=== PATIENT | female | born 1955 | race Caucasian/White ===

== ENCOUNTER → 2017-10-02 | Outpatient (CLI) | payer OTHER ==
[~2017-10-02] MED LIST: ANTIVERT25 MG PO; BRINTELLIX10 MG PO; DEXACIDIN EYE DR5 ML OP; HYDROCODON-ACE1 EAC7 PO; MULTI VITAMIN1 EACH PO; TRANSDERM-SCO1 PATC1 TD; WELLBUTRIN SR100 MG PO
--- NOTE | 2017-10-04 10:53 | TST ---
[place] [address] TREADMILL STRESS TEST Name: PATTY BENITEZ Room: [facility]#: [id number] Admission: 10/02/17 Attend Phys: Migue Carter, Discharge: Date of : 53 Date of Service: 10/02/17 1608 Report #: [id number] THIS REPORT FOR: //name// CC: Migue Carter [facility] DATE OF SERVICE: 10/02/2017 ORDERING PHYSICIAN: Migue Carter MD. INDICATION: Shortness of breath, vertigo. CHRONIC ISSUES: Negative. RISK FACTORS: Include age. No medications. The patient exercised for 8 minutes on a standard Cedric protocol, achieving 91% age predicted maximum heart rate, 10.13 mets. Resting blood pressure 108/71, heart rate 65, peak blood pressure 135/67, heart rate 143. Recovery blood pressure 118/78 with a heart rate of 81. The test was terminated due to fatigue. There were no complaints of chest discomfort. Exercise capacity overall is normal. Resting ECG demonstrates a sinus rhythm. During exercise, there were mild nonspecific ST-segment changes, not meeting criteria for ischemia. Recovery was normal. IMPRESSION: 1. Clinical portion was negative. 2. Electrocardiographic portion was negative. 3. Exercise capacity is normal. CONCLUSION: This exercise ECG only stress test was negative for ischemia at the level of exercise achieved. <ELECTRONICALLY SIGNED> By: Ariel Vazquez MD, FACC 10/04/17 1053 1608 1756 Ariel Vazquez MD, [facility] /nt
== END ==
LOC: M.CRD 09-17 14:01 → M.ULTRA 08:00 → M.NUC 08:00 → M.CRD 13:00 → M.ULTRA 14:00
DX: E04.2 Nontoxic multinodular goiter (principal); R53.83 Other fatigue; R06.09 Other forms of dyspnea; R55 Syncope and collapse; R42 Dizziness and giddiness

== ENCOUNTER 2018-09-26 13:20 | Inpatient (IN) | payer OTHER ==
[2018-09-26] VITALS (8 sets, daily range): BP systolic 72–237; BP diastolic 42–161
[~2018-09-26] VITALS: Ht 157.5 cm; Wt 59.0 kg
[2018-09-26 14:15] LABS: ABSOLUTE BASOPHILS 0.1 thou/uL (0.0-0.2); ABSOLUTE EOSINOPHILS 0.1 thou/uL (0.0-0.7); ABSOLUTE LYMPHOCYTES 5.9 thou/uL (0.8-5.3); ABSOLUTE MONOCYTES 0.7 thou/uL (0.0-1.2); BASOPHILS 0.6 %; EOSINOPHILS 1.4 %; HEMATOCRIT 46.8 % (37.0-47.0); HEMOGLOBIN 13.9 gm/dL (12.0-15.0); LYMPHOCYTES 59.8 %; MCH 28.9 pg (26.0-34.0); MCHC 29.7 g/dL (28.0-37.0); MCV 97.6 fL (80.0-100.0); MONOCYTES 7.6 %; MPV 8.4 fl. (7.2-11.1); NUCLEATED RBCS 0 /100WBC; PLATELET COUNT* 171 thou/uL (150-400); POLYS 30.6 %; RBC 4.79 mil/uL (4.20-5.00); RDW-CV 14.9 % (10.5-14.5); WBC 9.8 thou/uL (4.0-11.0)
[2018-09-26 14:22] LABS: APTT 41.9 Seconds (25.0-31.3); INR 1.2; PROTIME 12.4 Seconds (9.20-11.50)
[2018-09-26 14:31] LABS: CALCIUM 7.7 mg/dL (8.5-10.1); CREATININE 1.5 mg/dL (0.6-1.3); POTASSIUM 4.1 mmol/L (3.5-5.1)
[2018-09-26 14:35] LABS: ALBUMIN 2.5 g/dL (3.4-5.0); CK-MB MASS 2.9 ng/mL (<0.5-3.6); MAGNESIUM 2.7 mg/dL (1.8-2.4); TOTAL BILIRUBIN 0.4 mg/dL (<0.1-1.0); TOTAL PROTEIN 5.4 g/dL (6.4-8.2)
[2018-09-26 14:38] LABS: TROPONIN-I LEVEL 0.76 ng/mL (<0.06)
--- NOTE | 2018-09-26 15:20 | EKG ---
[place] [address] ELECTROCARDIOGRAM REPORT Name: PATTY BENITEZ Room: [address] ADM IN M.R.#: [id number] Admission: 09/26/18 Attend Phys: Gennaro Dooley MD Discharge: Date of : 53 Report #: [id number] THIS REPORT FOR: //name// [facility] ED Test Date: 2018-09-26 Test Time: 13:28:30 Pat Name: PATTY BENITEZ Department: Room: [facility] Gender: F Health Advocate: Lizzy MAYO : 1955 Requested By: Phil Daly Order Number: [id number] MD: Lex Francis Measurements Intervals [place] Rate: 106 P: 14 FL: 119 QRS: 38 QRSD: 135 T: -19 QT: 345 QTc: 459 Interpretive Statements Sinus tachycardia Right bundle branch block Inferior infarct, age indeterminate Lateral leads are also involved No previous ECG available for comparison Electronically Signed On 09-26-2018 15:20:43 CDT by Lex Francis [email or web address] <ELECTRONICALLY SIGNED> By: Lex Francis MD, [facility] 09/26/18 1520 1328 1328 Lex Francis MD, FAC /EPI
--- NOTE | 2018-09-26 17:00 | 2DMMODE ---
[place] [address] 2 D/M-MODE ECHOCARDIOGRAM Name: PATTY BENITEZ Room: [address] ADM IN R#: [id number] Admission: 09/26/18 Attend Phys: Gennaro Dooley, Discharge: Date of : 53 Date of Service: 09/26/18 1700 Report #: [id number] THIS REPORT FOR: //name// APPROVED REPORT Study performed: 09/26/2018 16:24:28 EXAM: Comprehensive 2D, Doppler, and color-flow Echocardiogram Patient Location: In-Patient Room #: [facility] Status: routine BSA: 1.54 HR: 108 bpm BP: 145/67 mmHg Rhythm: NSR Other Information Study Quality: Good Indications Pulmonary Embolism 2D Dimensions IVSd: 14.36 (7-11mm) LVOT Diam: 18.41 (18-24mm) LVDd: 19.00 mm PWd: 10.76 (7-11mm) Ascending Ao: 27.84 (22-36mm) LVDs: 12.54 (25-40mm) Aortic Root: 26.73 mm Aortic Valve AoV Peak Derrek.: 0.97 m/s AO Peak Gr.: 3.78 mmHg LVOT Max P.40 mmHg AO Mean Gr.: 2.00 mmHg LVOT Mean P.70 mmHg LVOT Max V: 0.92 m/s AO V2 VTI: 11.64 cm LVOT Mean V: 0.61 m/s SY (VTI): 2.67 cm2 LVOT V1 VTI: 11.69 cm Mitral Valve E/A Ratio: 0.76 MV Decel. Time: 281.78 ms MV E Max Derrek.: 0.56 m/s MV PHT: 81.72 ms MVA (PHT): 2.69 [place] [address] 2 D/M-MODE ECHOCARDIOGRAM Name: PATTY BENITEZ Room: [address] IN .R.#: [id number] Admission: 09/26/18 Attend Phys: Gennaro Dooley, Discharge: Date of : 53 Date of Service: 09/26/18 1700 Report #: [id number] E/Lateral E': 8.00 E/Medial E': 8.00 Medial E' Derrek.: 0.07 m/s Lateral E' Derrek.: 0.07 m/s Tricuspid Valve RAP Estimate: 5.00 mmHg TR Peak Gr.: 28.05 mmHg RVSP: 33.00 mmHg PA Pressure: 33.00 mmHg Left Ventricle The left ventricle is normal size. There is normal LV segmental wall motion. Mild concentric left ventricular hypertrophy. Left ventricular systolic function is normal. LVEF is >70%. Transmitral Doppler flow pattern suggests impaired LV relaxation. Right Ventricle Right ventricle is moderately dilated. The right ventricular systolic function is normal. Atria The left atrium size is normal. Right atrium is moderately dilated. Aortic Valve The aortic valve is normal in structure. Trace aortic regurgitation. There is no aortic valvular stenosis. Mitral Valve The mitral valve is normal in structure. There is no mitral valve regurgitation noted. No evidence of mitral valve stenosis. Tricuspid Valve The tricuspid valve is normal in structure. Moderate tricuspid regurgitation. Mild pulmonary hypertension. Pulmonic Valve The pulmonary valve is normal in structure. Trace pulmonic regurgitation. Great Vessels The aortic root is normal in size. IVC is normal in size and collapses >50% with inspiration. Pericardium There [place] [address] 2 D/M-MODE ECHOCARDIOGRAM Name: PATTY BENITEZ Room: [address] IN [facility]#: [id number] Admission: 09/26/18 Attend Phys: Gennaro Dooley, Discharge: Date of : 53 Date of Service: 09/26/18 1700 Report #: [id number] <Conclusion> The left ventricle is normal size. Mild concentric left ventricular hypertrophy. Left ventricular systolic function is normal. LVEF is >70%. Transmitral Doppler flow pattern suggests impaired LV relaxation. Right atrium is moderately dilated. Right ventricle is moderately dilated. Moderate tricuspid regurgitation. Mild pulmonary hypertension. <ELECTRONICALLY SIGNED> By: Lex Francis MD, FACC 09/26/181699 99 99 Lex Francis MD, FACC /INF
[2018-09-26 17:01] LABS: INFLUENZA A ANTIGEN None Detected (None Detect); INFLUENZA B ANTIGEN None Detected (None Detect)
[2018-09-26 19:25] LABS: BE -14.1 mmol/L (-2 to +3); PO2 80.1 mmHg (75.0-100.0)
[2018-09-26 19:31] LABS: pH 7.038 (7.340-7.450)
[2018-09-26 19:32] LABS: PCO2 62.5 mmHg (35.0-45.0)
--- NOTE | 2018-09-27 17:07 | CON ---
[address] [address] CONSULTATION Name: PATTY BENITEZ Room: [address] IN M.R.#: [id number] Admission: 09/26/18 Attend Phys: Gennaro Dooley MD Discharge: 09/26/18 Date of : 53 Report #: [id number] THIS REPORT FOR: //name// CC: Gennaro Carter INDICATION: Out of hospital arrest. HISTORY OF PRESENT ILLNESS: The patient is a 63-year-old white female admitted to the hospital with complaints initially to her family of shortness of breath. EMS was summoned. Somewhere along the line, the patient collapsed. En route, she lost her pulse and had apparent seizure-like activity. The patient was given CPR and epinephrine and resuscitated at the Emergency Room. EKG shows right bundle-branch block with some ST segment depression. She has elevation isolated to lead 3, but not in contiguous leads. Troponin is 0.7. CTA of the chest shows large bilateral pulmonary emboli, which is likely the cause of her out of hospital arrest. Presently, she is intubated and unresponsive. PAST MEDICAL HISTORY: Anxiety, depression, and vertigo. ALLERGIES: None documented. HOME MEDICATIONS: Wellbutrin 100 mg b.i.d., Trintellix 10 mg daily, Transderm scopolamine patch q. 3 days, meclizine p.r.n. REVIEW OF SYSTEMS: Not obtainable. FAMILY HISTORY: Noncontributory. PHYSICAL EXAMINATION: VITAL SIGNS: Pulse is 102. Telemetry shows sinus tachycardia. Blood pressure 90/57. HEENT: Head is normocephalic, atraumatic. Pupils equally round and reactive to light. NECK: Shows a central line placement in the right neck, left neck without obvious jugular venous distention. CHEST: Reveals clear lung cruz anteriorly. CARDIAC: Reveals a tachycardic rhythm with grade 2/6 holosystolic murmur heard at the right upper sternal border. ABDOMEN: Reveals the abdomen is covered by cooling blanket. EXTREMITIES: Shows extremities cool to touch. Peripheral pulses not easily palpable. SKIN: Cool to the touch. The patient is somewhat pale. RADIOLOGICAL DATA: CT of the chest shows bilateral pulmonary emboli, [place] [address] CONSULTATION Name: PATTY BENITEZ Room: [address] IN [facility].#: [id number] Admission: 09/26/18 Attend Phys: Gennaro Dooley MD Discharge: 09/26/18 Date of : 53 Report #: [id number] LABORATORY DATA: Reviewed. Sodium 141, potassium 4.1, chloride 106, bicarbonate 18, BUN 25, creatinine 1.5, serum glucose 192, AST 655, lipase 256, total bilirubin 0.4, calcium 7.7, magnesium 2.7, alkaline phosphatase 107, ALT 618, total protein 5.4, albumin 2.5. Lactic acid 12.0. Troponin 0.76. NT-proBNP 21. White blood cell count 9.8; hemoglobin 13.9; platelet count 171,000. IMPRESSION AND RECOMMENDATIONS: 1. Out of hospital arrest secondary to bilateral pulmonary emboli. The patient is being transitioned to heparin drip. Blood pressure support with significant volume resuscitation as well as pressor agents currently. Hesitant to thrombolysis as the patient has a hematoma forming over central line placement in the right neck. Continue cooling protocol. 2. Elevated troponins secondary to type 2 myocardial infarction due to strain. Obtaining echocardiogram at this time. 3. Hypotension due to diminished cardiac output from obstruction on the right side. Recommend significant volume resuscitation at this time in an effort to improve blood pressure. Agree with pressor agents. <ELECTRONICALLY SIGNED> By: Lex Francis MD, FACC 09/27/18 1707 1631 [id number] Centeranam Francis MD, FACC /nt
== END 2018-09-26 23:00 | DRG 673 ==
LOC: M.ERS 13:20 → M.TBA-ER 14:23 → M.ICU 14:56
PROVIDERS: Emergency Medicine Emergency Medical Services; ADMIT Internal Medicine
PROC: 5A1935Z Respiratory Ventilation, Less than 24 Consecutive Hours (ICD-10-PCS; principal; 2018-09-26)
PROC: 02HV33Z Insertion of Infusion Device into Superior Vena Cava, Percutaneous Approach (ICD-10-PCS; principal; 2018-09-26)
PROC: 0BH17EZ Insertion of Endotracheal Airway into Trachea, Via Natural or Artificial Opening (ICD-10-PCS; principal; 2018-09-26)
PROC: 06H03DZ Insertion of Intraluminal Device into Inferior Vena Cava, Percutaneous Approach (ICD-10-PCS; principal; 2018-09-26)
PROC: B5181ZZ Fluoroscopy of Superior Vena Cava using Low Osmolar Contrast (ICD-10-PCS; principal; 2018-09-26)
DX: N17.0 Acute kidney failure with tubular necrosis (principal); J96.00 Acute respiratory failure, unspecified whether with hypoxia or hypercapnia; I26.99 Other pulmonary embolism without acute cor pulmonale; I21.3 ST elevation (STEMI) myocardial infarction of unspecified site; K72.00 Acute and subacute hepatic failure without coma; E87.2 Acidosis; F41.9 Anxiety disorder, unspecified; F32.9 Major depressive disorder, single episode, unspecified; I95.9 Hypotension, unspecified; Z66 Do not resuscitate; Z79.899 Other long term (current) drug therapy